=== PATIENT | female | born 1960 | race Caucasian/White ===

== ENCOUNTER 2019-10-15 08:00 | Day surgery (SDC) | payer OTHER ==
[2019-10-15] MEDS ORDERED: CEFAZOLIN SODIUM 1 GM/VIAL ONE (08:01)
[2019-10-15] MEDS ORDERED: Mastisol Adhesive Liq ONE (08:01)
[2019-10-15] MEDS ORDERED: Ringers Lactate 1,000 ML IV ONE ×3 (08:01→08:31)
[2019-10-15] MEDS ORDERED: NS 0.9% VIAL 10 ML ONE (08:01)
[2019-10-15] MEDS ORDERED: GENTAMICIN SULF 80 MG/2ML INJ ONE (08:01)
[2019-10-15] MEDS ORDERED: BACITRACIN 50000 UNIT VIAL ONE (08:02)
[2019-10-15] MEDS ORDERED: propofoL 200 MG/20 ML VIAL IV ONE (08:08)
[2019-10-15] MEDS ORDERED: dexAMETHasone 10 MG/ML VIAL ONE (08:09)
[2019-10-15] MEDS ORDERED: LIDOCAINE 2% MPF 5 ML VIAL ONE (08:09)
[2019-10-15] MEDS ORDERED: MIDAZOLAM HCL 2 MG/2 ML INJ ONE ×2 (08:09→09:51)
[2019-10-15] MEDS ORDERED: FENTANYL CITR 250 MCG/5 ML ONE (08:10)
[2019-10-15] MEDS ORDERED: ONDANSETRON 4 MG/2 ML VIAL ONE ×3 (08:12→12:48)
[2019-10-15] MEDS ORDERED: ROCURONIUM 50 MG/5 ML VIAL IV ONE (08:12)
[2019-10-15 08:21] LABS: Absolute Lymphocytes (CBC) 1.5 K/uL (0.7-4.9); Basophils % 0.5 % (0-1.3); Hematocrit 44.1 % (36.0-45.0); Lymphocytes % 44.1 % (15.3-44.8); RBC Red Blood Cell Count 4.88 M/uL (3.86-4.86)
[2019-10-15] MEDS ORDERED: CEFAZOLIN/SWI 1gm 1 GM/10 ML SYR ONE (08:31)
[2019-10-15] MEDS ORDERED: NS 0.9% VIAL 20 ML ONE ×2 (09:28→10:17)
[2019-10-15] MEDS ORDERED: LIDOCAINE 1% W/EPI 1:100,000 MDV 20 ML VIAL ONE (09:29)
[2019-10-15] MEDS ORDERED: SCOPOLAMINE HYDROBROMIDE PATCH TD ONE ×2 (09:50→09:55)
[2019-10-15] MEDS ORDERED: Phenylephrine HCl 10 MG/ML 1 ML VIAL ONE (10:15)
[2019-10-15] MEDS ORDERED: MORPHINE 10 MG/ML VIAL ONE (10:37)
[2019-10-15] MEDS ORDERED: MEPERIDINE HCL 25 MG/0.5 ML ONE (10:37)
[2019-10-15] MEDS ORDERED: FENTANYL CITR 100 MCG/2 ML ONE (11:34)
[2019-10-15] MEDS ORDERED: GLYCOPYRROLATE 0.2 MG/ML SYR ONE (12:45)
[2019-10-15] MEDS ORDERED: NEOSTIGMINE 1 MG/ML -5 ML ONE (12:48)
[2019-10-15] MEDS ORDERED: HYDROMORPHONE HCL 1 MG/ML INJ ONE (15:04)
[2019-10-15 15:29] VITALS: TEMP 97.9
[2019-10-15] MEDS ORDERED: CODEINE 30MG/APAP 300MG TAB ONE (15:49)
[2019-10-15 16:34] VITALS: BP 92/44; O2SAT 97
--- NOTE | 2019-10-16 00:25 | OP ---
Surgeon: Sundar Freire MD Radiologic Technician: Tomy. Preoperative Diagnosis: Breast descent status post breast augmentation. Postoperative Diagnosis: Breast descent status post breast augmentation. Procedure Performed: Explantation and lift. Anesthesia: General. Procedure In Detail: After satisfactory induction of general anesthesia, 0.5% Xylocaine with epineph rine was used to infiltrate the right and left upper breast above areolas. Then, the breast was prep ped with Betadine scrub, Betadine paint, dry sterile drapes applied in the usual manner. A 42 templa te was used to outline the right and left areola. Then incision made with a scalpel to areola and th e skin incisions. Intervening skin was de-epithelialized with dermabrader and EpiCut, then transvers e and lateral incisions were made with electrocautery. The flap was elevated through the sternum, cl avicle, anterior axillary line 1.1 cm thickness. After this was done on both sides, the implants wer e removed through lateral incision approximately retropectoral. The implants were removed and they w ere silicone gel smooth and they weighed 456 g each side. Attention was then turned to the right lynne e. An inferior incision was made full thickness and then de-epithelialized tissue formed with a cone with 2-0 PDS sutures. After conization was performed, straps were elevated at the 12 o'clock, 1:30 and 3 o'clock position. The straps were then woven in and out of the pectoralis major muscle, back t o the base of the cone, pectoralis muscle back to the cone, tied themselves with 2-0 PDS sutures. Th is was done from the 12 o'clock and 130 strap. A 3 o'clock strap was sewn over the sternum with 2 Me rsilene sutures; the left side was done in identical manner with mirror-image. The wound was careful ly stapled shut. The patient was sat up. Symmetry was checked. Dog ears were marked out. The janet ent was placed supine. The wounds were irrigated with antibiotic solution. A 10 QAMAR was brought out the axilla and sewn in place with 2-0 silk. Dog ears were resected and the wound closed in layers wi th 3-0 Vicryl subcu, 3-0 PDS running subcuticular tied in the vertical meridian of the breast. The p atient was again sat up. Site for new nipple-areolar complex was marked out. She was cored out with a 42 mm template and then the wound closed with interrupted 4-0 PDS followed by 4-0 PDS running subc uticular. Dressings consisted of tincture of benzoin, Steri-Strips, 5 x 5s, fluffs and Darien wrap. e patient tolerated the procedure well. The amount of tissue removed from the right breast was 20 g, the left breast was 22 g. Each implant weighed 456 g. JOSSE/TRAN Voice ID: [id number] Report ID: [id number]
== END 2019-10-15 16:48 | disposition home or self-care (01) ==
LOC: OR 08:00
PROVIDERS: ATTEND Specialist
PROC: 0HPT0JZ Removal of Synthetic Substitute from Right Breast, Open Approach (ICD-10-PCS; 2019-10-15)
PROC: 0H0V0ZZ Alteration of Bilateral Breast, Open Approach (ICD-10-PCS; 2019-10-15)
PROC: 0HPU0JZ Removal of Synthetic Substitute from Left Breast, Open Approach (ICD-10-PCS; principal; 2019-10-15 09:00)
DX: N64.81 Ptosis of breast (principal); Z45.812 Encounter for adjustment or removal of left breast implant; Z45.811 Encounter for adjustment or removal of right breast implant
CPT/HCPCS: 85025; 36415; 88305 ×2; 19328; 19316; J2704; J2370; J1580; J2250; J3010 ×2; J1100; J1170; J2710; J0690 ×2; J7120 ×3; J2405 ×3; J2175